=== PATIENT | male | born 1940 | race Caucasian/White ===

== ENCOUNTER 2023-11-20 10:47 | Outpatient (RCR) | payer MEDICARE, OTHER, SELFPAY | END 2023-11-20 23:59 | disposition home or self-care (01) | LOC: CRHB 10:47 | PROVIDERS: ATTENDING PHYSICIAN Internal Medicine Cardiovascular Disease | DX: I25.10 Atherosclerotic heart disease of native coronary artery without angina pectoris (principal); Z95.1 Presence of aortocoronary bypass graft | CPT/HCPCS: G0422; G0423 ==

== ENCOUNTER 2023-12-20 10:29 | Outpatient (RCR) | payer MEDICARE, OTHER, SELFPAY | END 2023-12-20 23:59 | disposition home or self-care (01) | LOC: CRHB 10:29 | PROVIDERS: ATTENDING PHYSICIAN Internal Medicine Cardiovascular Disease; FAMILY PHYSICIAN Nurse Practitioner Family | DX: I25.10 Atherosclerotic heart disease of native coronary artery without angina pectoris (principal); Z95.1 Presence of aortocoronary bypass graft | CPT/HCPCS: G0422; G0423 ==

== ENCOUNTER 2024-01-20 10:05 | Outpatient (RCR) | payer MEDICARE, OTHER, SELFPAY | END 2024-01-20 23:59 | disposition home or self-care (01) | LOC: CRHB 10:05 | PROVIDERS: ATTENDING PHYSICIAN Internal Medicine Cardiovascular Disease; FAMILY PHYSICIAN Nurse Practitioner Family | DX: I25.10 Atherosclerotic heart disease of native coronary artery without angina pectoris (principal); Z95.1 Presence of aortocoronary bypass graft | CPT/HCPCS: G0422; G0423 ==

== ENCOUNTER 2024-01-24 10:47 | Outpatient (RCR) | payer MEDICARE, OTHER, SELFPAY | END 2024-01-24 23:59 | disposition home or self-care (01) | LOC: CRHB 10:47 | PROVIDERS: ATTENDING PHYSICIAN Internal Medicine Cardiovascular Disease; FAMILY PHYSICIAN Nurse Practitioner Family | DX: I25.10 Atherosclerotic heart disease of native coronary artery without angina pectoris (principal); Z95.1 Presence of aortocoronary bypass graft | CPT/HCPCS: G0422; G0423 ==

== ENCOUNTER → 2025-03-15 13:53 | Outpatient (REF) | payer MEDICARE, OTHER, SELFPAY ==
[2025-03-15 15:18] LABS: Blood Urea Nitrogen 23 mg/dl (9-20); Calcium 9.5 mg/dl (8.4-10.2); Carbon Dioxide 27 mmol/L (22-30); Chloride 100 mmol/L (98-107); Glucose 116 mg/dl (70-99); Potassium 4.8 mmol/L (3.5-5.1); Sodium 133 mmol/L (135-145); eGFR 59.63
== END ==
LOC: REG 13:53
PROVIDERS: ATTENDING PHYSICIAN Physician Assistant
DX: C67.9 Malignant neoplasm of bladder, unspecified (principal)
CPT/HCPCS: 36415; 80048

== ENCOUNTER → 2025-03-16 08:24 | Outpatient (REF) | payer MEDICARE, OTHER, SELFPAY | LOC: RAD 08:24 | PROVIDERS: ATTENDING PHYSICIAN Physician Assistant; FAMILY PHYSICIAN Nurse Practitioner Family | DX: C67.9 Malignant neoplasm of bladder, unspecified (principal) | CPT/HCPCS: 74178; Q9967 ==

== ENCOUNTER 2025-03-30 23:02 | Observation (INO) | payer MEDICARE, OTHER, SELFPAY ==
[2025-03-30 19:14] VITALS: BP 151/80
[2025-03-30 19:18] LABS: Glucose - Point of Care 112 mg/dl (70-99)
--- NOTE | 2025-03-30 19:22 | ED.CVA ---
History of Present Illness
General
Chief Complaint: CVA/TIA Symptoms
Time Seen by Provider: 03/30/25 19:20
Onset of Stroke Symptoms
Onset of symptoms known: Yes
Date of onset of symptoms: 03/30/25
History of Present Illness
History of Present Illness:
See MDM
Past History
Past History
ED Past Medical History: CAD, HTN and Other (TIA)
ED Past Surgical History: Cardiac
Social History
Tobacco: Non-smoker
Alcohol: None
Phy Exam
Physical Exam
Physical Exam:
See MDM
NIH Stroke Score
Level of Consciousness: 0 - Alert
LOC questions: 0-Answers both correctly
LOC Commands: 0-Performs both correctly
Best Gaze: 0-Normal
Visual Campos: 0=Normal, no visual loss
Facial palsy: 0=Normal, symmetrical
Motor - Right Arm: 0=No drift 10 seconds
Motor - Left Arm: 0=No drift 10 seconds
Motor - Right Le-No drift 5 seconds
Motor - Left Le-No drift 5 seconds
Limb Ataxia: 0-Absent
Sensation: 0-Normal
Best Language: 0-No aphasia
Dysarthria: 0-Normal
Extinction and Inattention: 0-No abnormality
Total Score:: 0
Course
Orders/Labs/Results
Orders:
Orders
03/30/25 19:21
Electrocardiogram (*1) Stat
Reason for Study: Other
Other Reason for Exam: neuro symptoms
CT Head & Neck Angio W/wo IV Urgent
Comment:
Reason For Exam: expressive aphasia, resolving
Cardiac Monitoring- Treatment ONCE
EKG- Treatment ONCE
03/30/25 19:22
0.9% Sodium Chloride 1000 ml [Nss] 1,000 ml IV BOLUS
03/30/25 19:23
Complete Blood Count/With Diff Urgent
Comprehensive Metabolic Panel Urgent
PTT Urgent
Prothrombin Time Urgent
Troponin I Urgent
03/30/25 21:52
Aspirin Chewable [Low Strength Aspirin] 324 mg PO NOW STA
Clopidogrel Bisulfate [Plavix] 300 mg PO NOW STA
03/30/25 22:18
Admit/Transfer Patient As Directed
Co-Sign Provider:
Level of Care: Observation services
Assign to:: Telemetry
Physician / Group: tex
Diagnosis: cva
Reason for Telemetry: CVA/TIA
Date to Stop Telemetry: 04/02/25
Time to Stop Telemetry: 11:00
03/30/25 22:19
Code Status As Directed
Resuscitation Status: Full Code
PRN Pain Medication Management As Directed
May give lesser potent ordered pain med per pt: Yes
preference::
Protocol:: Medication orders for pain may be administered in a
manner that supports deferring to patient preference
when the pt is:
- Requesting an ordered lesser potent pain medication.
Least to most potent pain medications are defined
as: acetaminophen < NSAID < tramadol < opioids
(morphine, oxycodone, hydromorphone).
- Requesting a lesser dose of the same medication IF
ORDERED.
- Requesting a less intrusive route of administration
if both routes are prescribed by the provider (PO <
IV).
03/31/25 00:24
Acetaminophen [Tylenol/Feverall] 650 mg RECTAL Q4HPRN PRN
Acetaminophen [Tylenol] 650 mg PO Q4HPRN PRN
03/31/25 00:24
Echo 2D MMode Color/Doppler Routine
Reason for Study: stroke/TIA
Case Management Consult ONCE
Case Management Consult: Discharge Planning
Comment: stroke/tia
Consult Notification Routine
Specialty to Notify: Neurology
Date consulting provider notified: 03/31/25
Time consulting provider notified: 07:25
Notified:: Provider
Comment: MADELYN GORE
DIETARY IP CONSULT Routine
Reason for Consult: stroke/TIA
NEUROLOGY CONSULT Urgent
Consulting Provider: Madelyn Gore
Was physician already notified: No
Reason for consult: cva/tia
[employer] Urgent
MR Brain Without Contrast Routine
Comment:
Reason For Exam: stroke/TIA
Recent pill cam endoscopy?: No
Activity As Directed
Activity Level: As Tolerated
NIH Stroke Scale As Directed
Directions: Per protocol
Comment: every shift and with any change in condition or mental status
Neurological Checks As Directed
Frequency: q4h
Additional Instructions:: q4h x 24h upon admission to the floor, then qshift & with any change in condition
and mental status
Patient Education As Directed
Type: Stroke education packet
Comment: provide to patient and family
Pneumatic Compression Sleeves As Directed
Type: Thigh high
Swallow Screening CVA/TIA ONLY As Directed
Comment: NPO until swallowing screening completed
If patient FAILS swallow screening:: NPO, Speech Therapy consult, Aspiration Precautions
If patient PASSES swallow screening, diet:: Cholesterol Lowering
Above diet order entered?: Yes- passed screening
Vital Signs As Directed
Frequency: Per unit guidelines
Call for:: BP greater than 180/105 mmHg or less than 100/60 mmHg
Ot Eval And Treat Routine
Pt Eval And Treat Routine
Activity Level: As Tolerated
Speech Therapy Eval & Treat Routine
DX Deep Vein Thrombosis Video Routine
03/31/25 06:14
Cardiovascular Evaluation IN AM
Glycohemoglobin (HgbA1c) Routine
03/31/25 08:00
Aspirin Low Dose EC [Aspir Low (Enteric Coated)] 81 mg PO DAILY
Atorvastatin [Lipitor] 20 mg PO DAILY
Clopidogrel Bisulfate [Plavix] 75 mg PO DAILY
Midodrine [ProAmatine] 5 mg PO TID
Pantoprazole [Protonix] 20 mg PO DAILY
04/02/25 11:00
DC Protocol for Telemetry ONCE
Abnormal Lab Results
03/30/25 03/30/25
19:16 19:23
RBC 4.05 L 10^6/uL
(4.70-6.10)
Hct 38.2 L %
(39.0-52.0)
MCV 94.3 H fL
(80.0-94.0)
MCH 32.3 H pg
(27.0-31.0)
Absolute Monos (auto) 0.7 H 10^3/uL
(0.1-0.6)
PT 14.7 H Sec
(11.4-14.6)
BUN 22 H mg/dl
(9-20)
POC Glucose 112 H mg/dl
(70-99)
03/30/25 19:23
03/30/25 19:23
Vital Signs
Initial and Last Documented VS:
Initial Vital Signs
Temp Pulse Resp BP Pulse Ox
97.5 F 61 18 151/80 96
03/30/25 19:14 03/30/25 19:14 03/30/25 19:14 03/30/25 19:14 03/30/25 19:14
Last Documented Vital Signs
Temp Pulse Resp BP Pulse Ox
98.2 F 67 18 100/54 99
03/31/25 11:00 03/31/25 11:00 03/31/25 11:00 03/31/25 11:00 03/31/25 11:00
MDM/Problems Addressed
Differential Diagnosis Includes:
Note:
CHIEF COMPLAINT(S)
Speech difficulty.
HISTORY OF PRESENT ILLNESS
The patient is an 84-year-old male with a history of transient ischemic attacks (TIAs) presenting with difficulty speaking and slurred speech. This episode started approximately 20-40 minutes ago. Prior to the onset, the patient�s speech was normal
as verified by the family. The patient reported that he 'couldn't get the words out,' but his condition has since improved, allowing him to speak clearer, indicating partial resolution of symptoms. His speech initially improved after consuming some
fluids. The patient denies any current medications or allergies. He was taken off blood thinners a year and a half ago, which he was on previously until September. No other significant changes in medical history were mentioned. Patient was brought back
immediately. On my assessment, NIH stroke scale 0 and family confirms that all symptoms are resolved.
SOCIAL DETERMINANTS OF HEALTH
The patient�s recovery includes family support as the incident was promptly noted by family, aiding in timely medical attention.
PHYSICAL EXAM
General: Alert, no acute distress.
Skin: Warm, dry.
Head: Normocephalic, atraumatic
Neck: Appears supple, trachea midline.
Eyes, Ears, Nose, Mouth, and Throat: Moist mucous membranes
Cardiovascular: No signs of cyanosis. Regular rate and rhythm
Respiratory: Respirations are non-labored.
Abdomen: Non-distended
Musculoskeletal: No deformities
Neurological: No focal neurological deficit observed.
Psychiatric: Cooperative, appropriate mood and affect.
PLAN
- Perform studies to evaluate current condition and potential TIA-related effects.
- Observation for potential hospitalization to monitor overnight if necessary.
- Conduct non-emergency imaging (MRI) and angiography.
- Immediate administration of clot-busting medication not indicated due to improvement.
DIFFERENTIAL DIAGNOSIS
The Differential Diagnosis includes, in no particular order and is not limited to:
- Transient Ischemic Attack (TIA)
- Ischemic Stroke
- Hemorrhagic Stroke
- Dehydration-induced transient symptoms
- Transient Global Amnesia
- Aphasia due to other neurologic conditions
- Anxiety or stress-induced speech difficulties
- Adverse reaction to medication or substance
- Neurological disorders such as migraine with aura
SUMMARY OF ENCOUNTER
The patient presented with sudden onset of speech difficulties, which showed improvement upon initial examination. Given his history of TIAs, a transient reduction in cerebral blood flow could be considered as the underlying cause. Differential
diagnoses are being evaluated, but no immediate administration of thrombolytics is deemed necessary given the improvement in neurological function. The decision was made to monitor the patient, perform further imaging studies, and consider keeping
him under observation for potential overnight hospitalization and to ensure no further neurological deficits arise.
DISPOSITION
Pending observation and results from additional studies, consideration for overnight hospitalization for further evaluation.
ASSESSMENT
Possibility of TIA given the transient nature and rapid improvement of symptoms warranting further observation and diagnostic studies.
INDEPENDENT REVIEW OF LABS AND INTERPRETATION OF TESTS
My independent review of necessary imaging tests includes MRI scheduled but not urgent perfusion imaging.
MEDICATION RECONCILIATION
No current medications reported, and no new medications initiated during this visit.
MEDICAL DECISION MAKING
- Complexity of Data Reviewed: Chronic conditions affecting care, including past TIAs. Differential diagnosis includes TIA, ischemic stroke, dehydration, transient global amnesia, and others.
- Data:
Category 1: Non-emergency imaging studies (MRI, angiography) are planned.
Category 2: Input data from external and prior family reports on the patients TIA history.
-Risk: Consideration of Admission/Observation: Escalation of care including admission/observation was considered given the complexity and risk of the patients presenting complaint, ongoing neurological improvement, and underlying comorbidities.
DIAGNOSIS
- Transient Ischemic Attack (G45.9)
- Observation for potential ischemic stroke while ruling out other differential diagnoses.
EKG
My independent EKG interpretation is:
- Time of EKG: [not provided, specify if known]
- Rhythm: Sinus bradycardia
- Heart Rate: 53 beats per minute
- [place]: Normal axis
- ST Segment: No ST elevation
- Ectopic Activity: No ectopy
SUMMARY OF ENCOUNTER
The patient, an 80-year-old male, presented with expressive aphasia that occurred immediately prior to arrival but resolved spontaneously. Given his history of coronary artery disease and previous transient ischemic attacks (TIAs), a computed
tomography angiography (CTA) was performed and returned negative. No prior brain MRI is available for comparison. Considering the patients high-risk status, the decision for admission was made after discussing the risks versus benefits. The patient
was loaded with aspirin and clopidogrel.
DISPOSITION
Admit.
EMERGENCY TREATMENTS ADMINISTERED
Aspirin and clopidogrel.
PLAN
The patient was admitted for further evaluation and monitoring due to his high-risk status for further cerebrovascular events.
MEDICAL DECISION MAKING
-Complexity of Data Reviewed: Chronic conditions affecting care include coronary artery disease, prior TIAs. Differential diagnosis includes transient ischemic attack (TIA), ischemic stroke, and other causes of transient speech difficulty.
-Data:
Category 1
Tests and documents: CTA was reviewed and interpreted as negative.
Category 3
Discussion of management included the decision to admit for observation due to the high-risk nature of the patient�s condition.
DIAGNOSIS
- Possible Transient Ischemic Attack (TIA) (G45.9)
- High risk for cerebrovascular events due to prior coronary artery disease and TIA history.
*Pulse Oximetry
Patient hypoxic: no
*Critical Care Note
Total Time (30-74mins, 75-104mins- exclusive of procedures): Not Applicable
ED Attending Note
-
Portions of this chart may have been created with voice recognition software.� Occasional wrong word or��sound alike� substitutions may have occurred due to the inherent limitations of voice recognition software.
Discharge Plan
Departure
Patient Disposition: Admit
Date of Disposition: 03/30/25
Time of Disposition: 21:53
Admit to: Telemetry
Presentation/result/management discussed w/ accepting MD/DO: Hospitalist
Discharge Problem:
Brain TIA
Interventions
Interventions:
*Risk Screen - Suicide Last Done: 03/30/25 19:14
*General Assessment Last Done: 03/30/25 19:25
*Neglect/Abuse Screening Last Done: 03/30/25 19:14
*ED COVID-19 Vaccine History Last Done: 03/30/25 19:14
*ED Influenza Vaccine History Last Done: 03/30/25 19:14
[facility] Fall Risk Assessment Tool Last Done: 03/30/25 19:09
*Nursing Disposition Last Done: 03/31/25 00:10
ED- Pulmonary Assessment Last Done: 03/30/25 19:29
ED- Neurological Assessment Last Done: 03/30/25 19:29
ED- Cardiac Assessment Last Done: 03/30/25 19:29
ED Swallowing Screen Last Done: 03/30/25 21:34
Discharge Date and Time
Discharge Date/Time: 03/31/25 00:10
[2025-03-30] MEDS: NSS 1000 IV (19:32)
[2025-03-30 19:33] LABS: Hematocrit 38.2 % (39.0-52.0); Hemoglobin 13.1 g/dL (13.0-18.0); Mean Corp Hgb Conc. 34.3 g/dL (33.0-37.0); Mean Corpuscular Volume 94.3 fL (80.0-94.0); Nucleated Red Blood Cells % 0 % (-); Platelet Count 246 10^3/uL (130-400); Red Cell Dist. Width 12.1 % (11.5-14.5)
[2025-03-30 19:43] LABS: INR 1.14; PT 14.7 Sec (11.4-14.6)
[2025-03-30 19:44] LABS: APTT 31.8 Sec (23.4-35.0)
[2025-03-30 19:55] LABS: ALT (SGPT) 26 U/L (0-50); AST (SGOT) 29 U/L (17-59); Albumin 4.6 g/dl (3.5-5.0); Alkaline Phosphatase 63 U/L (38-126); Blood Urea Nitrogen 22 mg/dl (9-20); Calcium 9.3 mg/dl (8.4-10.2); Carbon Dioxide 26 mmol/L (22-30); Chloride 102 mmol/L (98-107); Glucose 99 mg/dl (70-99); Potassium 4.3 mmol/L (3.5-5.1); Sodium 135 mmol/L (135-145); Total Protein 7.8 g/dl (6.3-8.2); eGFR 54.17
[2025-03-30 20:00] VITALS: BP 150/73
[2025-03-30 20:06] LABS: Troponin I < 0.012 ng/ml
[2025-03-30 21:00] VITALS: BP 158/78
--- NOTE | 2025-03-30 21:56 | HPS.HSE ---
Addendum entered and electronically signed by Vince Denney MD 03/30/25 22:39:
84M hx of tia, mary, gerd, cad s/p cabg
Presented with slurred speech and word findings difficulties. Was given gatorade with improvement. Hx of tia multiple, one episode believed to be dehydration
NIH 0, low lying bladder, rrr, aox3, upper and lower extremity motor strength 5/5
TIA vs CVA
MRI Brain/Angio
Lipids
A1c
Statin
Dapt start [id number].
2d echo with bubble
Neuro consult
MARY
CPAP
CAD s/p CABG
Asa and statin
Hypotension
Midodrine
Gerd
PPI
Bladder Ca hx
Follows at [facility]
In remission
Original Note:
Family Physician
-
Family Physician: ROBERT Colmenares
Chief Complaint
-
slurred speech
History of Present Illness
84-year-old male with a history of transient ischemic attacks, bladder cancer, CAD, hypotension, GERD, HLD presented with slurred speech and was not able to get the words out, which lasted for 20-30minutes. presenting with difficulty speaking and
slurred speech. His speech initially improved after consuming Gatorade. he had an sip of alcohol prior to the symptoms. denied GREGG,dizzy or syncope. denied focal weakness. denied fever, chills, cough, congestion, chest pain, sob.denied abdominal
pain,n,v,d. denied dysuria or hematuria.
concern for TIA. recived asa and plavix in ER. admitting for further managment.
Medical History
Past Medical History
Past Medical History: Reports Other
Additional Past Medical History:
Bladder polyps, GERD, hyperlipidemia, kidney stones, TIA, ascending aorta dilation, DJD, CAD, renal insufficiency, bladder cancer, obstructive sleep apnea
Past Surgical History: Reports Other
Additional Past Surgical History:
Coronary artery bypass graft x 3 vessels
Social History
Tobacco: Former Smoker
Alcohol: Occasional
Drug: None
Personal:
Living: With Family
Family History
Family History: Not pertinent
Allergies / Home Medications
Allergies reflects when Allergies were last updated in [employer].
Home Medications with original date entered in [employer]
Allergy/Medication List:
Allergies
Allergy/AdvReac Type Severity Reaction Status Date / Time
No Known Allergies Allergy Unverified 03/30/25 19:14
Home Medications
aspirin 81 mg tablet 81 mg PO DAILY 03/30/25
midodrine 5 mg tablet 5 mg PO TID 03/30/25
pantoprazole 20 mg tablet,delayed release 20 mg PO DAILY 03/30/25
simvastatin 40 mg tablet 40 mg PO DAILY 03/30/25
Review of Systems
-
Constitutional: Reports No Symptoms
EENT: Reports No Symptoms
Respiratory: Reports No Symptoms
Cardiac: Reports No Symptoms
Abdomen/GI: Reports No Symptoms
: Reports No Symptoms
Musculoskeletal: Reports No Symptoms
Skin: Reports No Symptoms
Neurological: Reports Other (slurred speech)
Endocrine: Reports No Symptoms
Hematologic/Lymphatic: Reports No Symptoms
Psych: Reports No Symptoms
Physical Exam
Vital Signs
Vital Signs
Temp Pulse Resp BP Pulse Ox
97.5 F 57 18 158/78 98
03/30/25 19:14 03/30/25 21:45 03/30/25 21:45 03/30/25 21:00 03/30/25 21:45
Physical Exam
General: Well Developed, Well Nourished and No Apparent Distress
HEENT: NormoCephalic, Moist mucous membranes and Atraumatic
Respiratory: Clear
Cardiac: S1/S2 and Regular Rhythm; No Murmur or Rub
GI: Soft, Non Tender, Non Distended and Normal Bowel Sounds; No Organomegaly
Rectal: Deferred by Provider
Musculoskeletal: No Clubbing, No Cyanosis and No Edema
Skin: No Rash
Neuro: AO x 3 and Nonfocal/grossly intact
Psych: Calm
Laboratory Results
-
03/30/25 19:23
03/30/25 19:
Laboratory Results
PT 14.7 Sec (11.4-14.6) H 03/30/25:
INR 1.14 03/30/25:
APTT 31.8 Sec (23.4-35.0) 03/30/25:
Total Bilirubin 1.1 mg/dl (0.2-1.3) 03/30/25:
AST 29 U/L (17-59) 03/30/25:
ALT 26 U/L (0-50) 03/30/25:
Alkaline Phosphatase 63 U/L (38-126) 03/30/25:
Troponin I < 0.012 ng/ml 03/30/25:23
Data Reviewed
-
CT Scan: Report Reviewed by me
Lab Data: Labs Reviewed by me
Impression/Plan
-
#expressive aphasia concern for CVA/TIA
-asa and Plavix
-MRI of brain
-obtain ECHO
-obtain a1c, lipid profile
-statin
-pt/ot
-neuro consult
-head neck CTA with no acute findings
#hypotension
-midodrine continued
#GERD
-PPI
#HLD
-statin
#hxt of CABG
#hxt of bladder ca
-follows [facility] as outpatient.
#DVT Prophylaxis
-scd
#CODE status
-full code
[2025-03-30] MEDS: LOW STRENGTH ASPIRIN 324 MG PO (21:57)
[2025-03-30] MEDS: PLAVIX 300 MG PO (21:57)
[2025-03-31] VITALS (12 sets, daily range): BP systolic 82–148; BP diastolic 44–74; PULSE 65–76; O2SAT 95; BMI 26.7
--- NOTE | 2025-03-31 03:16 | PTCARENOTE ---
03/31 at 0025: Pt received from ED via stretcher with belongings. Telemetry order> NSR on monitor, afebrile, HR 77, RR 16,
BP 132/74, pox 97% room air. No c/o pain. AAOx4, cochlear implant device noted. steady on feet. NIH 0. stroke packet provided.
PMH/medications reviewed by this RN and patient. Plan of care discussed. Call jean within reach.
[2025-03-31 07:12] LABS: HDL Cholesterol 41 mg/dl; LDL Cholesterol, Calculated 70 mg/dl; Very Low Density Lipoprotein 16 mg/dl (0-30)
[2025-03-31 07:19] LABS: Glycohemoglobin (HgbA1c) 5.4 % (4.0-5.9)
[2025-03-31] MEDS: ASPIR LOW (ENTERIC COATED) 81 MG PO (08:56)
[2025-03-31] MEDS: LIPITOR 20 MG PO (08:56)
[2025-03-31] MEDS: PLAVIX 75 MG PO (08:56)
[2025-03-31] MEDS: PROTONIX 20 MG PO (08:56)
--- NOTE | 2025-03-31 09:15 | CON.NEURO4 ---
Addendum entered and electronically signed by Erick Gore MD 03/31/25 19:42:
The patient was seen and examined today along with the nurse practitioner Geena Penn. I agree with the nurse practitioner Geena Penn's assessment and management plan. I personally performed the medical decision making of this encounter
and my assessment and management plan is as given below.
The patient is an 84 years old male, who has presented to the hospital on 03/30/25 with report of speech difficulty and dysarthria. Patient reports that last evening (03/30/25) at 1900 he was at his baseline when suddenly he had difficulty getting his
words out, and what came out sounded slurred. His family gave him some Gatorade and his symptoms began to improve. Her reports that after about 20-30 minutes his speech was back to baseline. NIHSS was 0 on arrival. CTA head/neck was obtained and is
negative for any acute abnormalities.
Neurologic examination
Alert oriented x 3,
Speech is clear,
The cranial nerves II to XII grossly intact,
The motor strength is grossly 5/5 bilaterally in upper and lower extremities,
Sensation grossly normal bilaterally,
The cerebellar examination does not show any limb ataxia.
. The patient likely had a transient ischemic attack and he has returned to his baseline. He was not a candidate for thrombolytic therapy as he returned to his baseline when he presented to the ER. The risk factors for stroke include hypertension
hyperlipidemia and coronary artery disease.
. MRI of the brain does not show an acute intracranial abnormality.
. Echocardiogram showed an ejection fraction of 60% and the left atrial volume is moderately abnormal.
. Recommend a 30-day Holter monitor at the time of discharge.
. The patient will continue take aspirin 81 mg daily, Plavix 75 mg daily and atorvastatin 20 mg daily.
. The LDL goal is less than 70.
. Check orthostatic vital signs.
Original Note:
Consultation - Neurology 4
-
CONSULTING PHYSICIAN: Erick Gore MD
REFERRING PHYSICIAN: Hospitalists/ROBERT Messina
DICTATED BY: ROBERT Courtney
DATE/TIME OF REQUEST: 03/31/25
DATE/TIME OF CONSULTATION: 03/31/25
Reason for Consultation: Transient Speech Difficulty
History of Present Illness:
This is an 84-year-old right-handed male who has presented to the hospital on 03/30/25 with report of speech difficulty and dysarthria. Patient reports that last evening (03/30/25) at 1900 he was at his baseline when suddenly he had difficulty
getting his words out, and what came out sounded slurred. His family gave him some Gatorade and his symptoms began to improve. Her reports that after about 20-30 minutes his speech was back to baseline. NIHSS was 0 on arrival. CTA head/neck was
obtained and is negative for any acute abnormalities. He is taking aspirin 81mg daily and was loaded with DAPT in the ER. Today (03/31/25), patient reports feeling at his baseline. He denies any headache, dizziness, vision changes, speech/swallow
difficulty, numbness, and weakness. He reports having a 'TIA' about three years ago that was somewhat similar. He suddenly couldn't remember the names of his grandchildren. He was evaluated at [facility] at that time and reports undergoing a stroke workup
including MRI brain imaging, and he notes it was all unremarkable.
Past Medical History: 'TIA' in 2021, HTN, orthostatic hypotension, HLD, CAD, JOANA (cpap), bladder cancer, CKD, hearing loss, GERD, renal calculi.
Surgical History: CABG x3.
Family History: Father- stroke age 89.
Social History: Former smoker. Occasional alcohol. Denies illicit drug use.
Allergies: No known allergies.
Home Medications: See below.
Review of Symptoms:
Patient denies any fever, headache, chest pain, shortness of breath, GI or symptoms.
�Per the HPI.�All systems are reviewed negative except above.
Physical Exam:
The patient is afebrile, abdomen is nondistended, breathing is unlabored, skin is warm and dry, no edema.
NIH Stroke Scale :
I performed the NIH stroke scale on the patient on 03/31/25 at 0845. The patient scored 0 points on the NIH stroke scale assessment, which were assigned as follows: See below.
Neurologic Examination:
The patient is awake, alert and oriented x 3. He is able to follow commands and answer questions appropriately. There is no aphasia or dysarthria. On cranial nerve assessment, pupils are 3 mm bilateral, round and reactive to light and
accommodation. Visual campos are full. Extraocular movements are intact. Facial sensations are intact and bilaterally symmetrical, there is no facial asymmetry. Hearing diminished bilaterally to normal conversation volume. Tongue palate and uvula
are midline. Sternocleidomastoid strengths are full bilaterally. Motor strengths are 5/5 bilateral upper and lower extremities on medical research Vanduser scale. There is no drift or involuntary movement noted. There was no extinction noted on
double simultaneous stimulation. Coordination is intact by finger to nose bilaterally.
Lab Results: See below.
Neuro Imaging:
1. CTA head/neck 03/30/25: No evidence of acute intracranial abnormality. There is paranasal sinus disease including small air-fluid levels within the left sphenoid sinus and the maxillary sinuses bilaterally. Please correlate with any symptoms that
would suggest acute sinusitis. No evidence for hemodynamically significant stenosis of either carotid bulb or proximal internal carotid artery. There is no evidence for significant narrowing of vertebral arteries. Basilar artery is slightly
hypoplastic. Both posterior cerebral arteries are supplied mainly from the posterior communicating arteries. No significant narrowing of the intracranial circulation. There is no CT angiographic evidence for intracranial aneurysm.
2. TTE 03/31/25: EF 60%, left atrial volume is moderately abnormal.
Differentials for the patient's presentation include:
1. Transient aphasia and dysarthria; differential diagnosis includes transient ischemic attack, a small ischemic stroke, metabolic disturbance, orthostasis, or less likely partial seizure.
2. Left atrial volume is moderately abnormal on TTE imaging.
Patient has the following risk factors for their symptoms: Hx similar event, orthostasis, age, HLD
IV Tenecteplase/IAT candidacy: He was not a candidate due to NIHSS 0, no LVO.
Recommendations:
-Continue DAPT with aspirin 81mg and clopidogrel 75mg daily for 21 days. After 21 days, stop clopidogrel and continue aspirin 81mg daily.
-Aspirin efficacy testing pending.
-MRI brain noncontrast pending.
-Check orthostatic vital signs.
-Given left atrial volume enlargement, would consider extended cardiac monitoring as an outpatient.
-NIHSS and neurological checks per unit guidelines.
-Provide patient with a stroke education packet.
-LDL goal <70. LDL is 70. Okay to continue home simvastatin 40mg daily as LDL is at goal.
-Goal normoglycemia, hbA1c is 5.4.
-Checking blood work for metabolic abnormalities.
-ST evaluation.
-DVT prophylaxis.
Discussed patient care with: Dr. Gore, the patient
Vital Signs and Labs
-
Vital Signs and Labs:
Vital Signs
Temp Pulse Resp BP Pulse Ox
98.2 F 67 18 100/54 99
03/31/25 11:00 03/31/25 11:00 03/31/25 11:00 03/31/25 11:00 03/31/25 11:00
Lab Results
03/30/25 19:23
03/30/25 19:23
PT 14.7 Sec (11.4-14.6) H 03/30/25 19:23
INR 1.14 03/30/25 19:23
APTT 31.8 Sec (23.4-35.0) 03/30/25 19:23
Sodium 135 mmol/L (135-145) 03/30/25 19:23
Potassium 4.3 mmol/L (3.5-5.1) 03/30/25 19:23
BUN 22 mg/dl (9-20) H 03/30/25 19:23
Glucose 99 mg/dl (70-99) 03/30/25 19:23
Calcium 9.3 mg/dl (8.4-10.2) 03/30/25 19:23
LDL Cholesterol, Calc 70 mg/dl 03/31/25 06:14
Medications
-
Active Medications
Generic Name Dose Route Start Last Admin
Trade Name Freq PRN Reason Stop Dose Admin
Acetaminophen 650 mg 03/31/25 00:24
Acetaminophen 650 Mg Rectal Suppository RECTAL 04/28/25 00:23
Q4HPRN PRN
GREGG, mild pain, or temp >100.4F
Acetaminophen 650 mg 03/31/25 00:24
Acetaminophen 325 Mg Tablet PO 04/28/25 00:23
Q4HPRN PRN
GREGG, mild pain, or temp >100.4F
Aspirin 81 mg 03/31/25 08:00 03/31/25 08:56
Aspirin 81 Mg (Enteric Coated) Tablet PO 04/28/25 07:59 81 mg
DAILY BLANCA Administration
Atorvastatin Calcium 20 mg 03/31/25 08:00 03/31/25 08:56
Atorvastatin (Lipitor) 20 Mg Tablet PO 04/28/25 07:59 20 mg
DAILY BLANCA Administration
Clopidogrel Bisulfate 75 mg 03/31/25 08:00 03/31/25 08:56
Clopidogrel 75 Mg Tablet PO 04/28/25 07:59 75 mg
DAILY BLANCA Administration
Midodrine 5 mg 03/31/25 08:00 03/31/25 08:55
Midodrine 5 Mg Tablet PO 04/28/25 07:59 5 mg
TID BLANCA Administration
Pantoprazole Sodium 20 mg 03/31/25 08:00 03/31/25 08:56
Pantoprazole 20 Mg Delayed Release Tablet PO 04/28/25 07:59 20 mg
DAILY BLANCA Administration
Home Medications
�Medication �Instructions �Recorded
aspirin 81 mg tablet 81 mg PO DAILY Blood Clot 03/30/25
Prevention/Tx
midodrine 5 mg tablet 5 mg PO TID Blood Pressure 03/30/25
pantoprazole 20 mg tablet,delayed 20 mg PO DAILY Gastrointestinal 03/30/25
release Issue
simvastatin 40 mg tablet 40 mg PO DAILY High Cholesterol 03/30/25
NIH Stroke Score
Subsequent NIH Scale
Date of Subsequent NIH Scale: 03/31/25
Time of Subsequent NIH Scale: 08:45
NIH Stroke Score
Level of Consciousness: 0 - Alert
LOC Questions: 0-Answers both correctly
LOC Commands: 0-Performs both correctly
Best Horizontal Gaze: 0-Normal
Visual Campos: 0=Normal, no visual loss
Facial Palsy: 0=Normal, symmetrical
Motor - Right Arm: 0=No drift 10 seconds
Motor - Left Arm: 0=No drift 10 seconds
Motor - Right Le-No drift 5 seconds
Motor - Left Le-No drift 5 seconds
Limb Ataxia: 0-Absent
Sensation: 0-Normal
Best Language: 0-No aphasia
Dysarthria: 0-Normal
Extinction and Inattention: 0-No abnormality
NIH Total Score:: 0
Modified [place] (mRS) Score
Modified [place] Scale (mRS): No symptoms
Score: 0
Alteplase Contraindication
Inclusion and Exclusion criteria reviewed: Yes
IAT Contraindications: Imaging doesn't show large vessel occlusion as cause of stroke
--- NOTE | 2025-03-31 10:56 | PTOTSP ---
Speech Therapy Evaluation:
Pt with predisposing risk factors of dysphagia (hx TIAs, GERD) and precipitating risk factors of dysphagia (concern for acute CVA). At bedside, swallow appeared WFL. No overt s/sx of aspiration. Pt without dysphagia hx, WBC WNL, on room air, and
passed 3oz swallow screen.
Recommend:
1. Cont. regular solids and thin liquids
2. Meds as tolerated
3. General aspiration and reflux precautions
4. ENTRY OPERATOR to follow, pending results of MRI to determine if further dysphagia tx or cognitive/language assessment warranted
--- NOTE | 2025-03-31 12:01 | W.PN.HOSP.TC ---
Today's Communication/Plan
-
Monitor vitals
See plan
Neurology to see
MRI pending
PT
Assessment / Plan
Assessment / Plan
General: Well Developed, Well Nourished and No Apparent Distress
HEENT: NormoCephalic, Moist mucous membranes and Atraumatic
Respiratory: Clear
Cardiac: S1/S2 and Regular Rhythm; No Murmur or Rub
GI: Soft, Non Tender, Non Distended and Normal Bowel Sounds
Musculoskeletal: No Edema
Neuro: AO x 3 and Nonfocal/grossly intact
Psych: Calm
expressive aphasia And slurred speech concern for CVA/TIA
hx of TIA
-cw asa and Plavix
-MRI of brain pending
Echo with EF 60%, mild concentric LVH
-obtain a1c 5.4, LDL 70
-statin
-pt
Neurology evaluation
-head neck CTA with no acute findings
#hypotension
-midodrine continued
#GERD
-PPI
#HLD
-statin
#hxt of CABG
#hxt of bladder ca
-follows [facility] as outpatient.
#DVT Prophylaxis
-scd
#CODE status
-full code
Anticipated Discharge: Within 24 hours
Subjective/Interval History
-
Date of Service: March 31, 2025
Denies pain
Objective Data
-
Vital Signs:
Vital Signs
Temp Pulse Resp BP Pulse Ox
98.2 F 67 18 100/54 99
03/31/25 11:00 03/31/25 11:00 03/31/25 11:00 03/31/25 11:00 03/31/25 11:00
[2025-03-31 14:07] LABS: VerifyNow Aspirin 398 ARU
[2025-03-31 16:54] LABS: Ferritin 68.1 ng/ml (17.9-464.0)
[2025-03-31 17:26] LABS: Folate 11.7 ng/ml (2.76-20); Vitamin B12 761 pg/ml (239-931)
--- NOTE | 2025-03-31 18:03 | CM ---
Alert awake oriented patient who lives with his Margaret who lives in a 1 story home with 0 step to enter . He is independent in driving and in all activities of daily living.He was offered VN he declined need.Lise explained [place] [facility].
[facility] VN hx / No SNF history
Pharmacy [facility] [address]
PCP DR Randolph
PLAN Home Declined VN
[2025-04-01 03:00] VITALS: BP 123/63
[2025-04-01 07:00] VITALS: BP 125/68
[2025-04-01] MEDS: ASPIR LOW (ENTERIC COATED) 81 MG PO (07:46)
[2025-04-01] MEDS: LIPITOR 20 MG PO (07:46)
[2025-04-01] MEDS: PLAVIX 75 MG PO (07:46)
[2025-04-01] MEDS: PROTONIX 20 MG PO (07:49)
--- NOTE | 2025-04-01 09:58 | W.PN.HOSP.TC ---
Today's Communication/Plan
-
dc home with OP neuro f/u and also 30 day Holter monitor to be setup by Cards
Assessment / Plan
Assessment / Plan
General: Well Developed, Well Nourished and No Apparent Distress
HEENT: NormoCephalic, Moist mucous membranes and Atraumatic
Respiratory: Clear
Cardiac: S1/S2 and Regular Rhythm; No Murmur or Rub
GI: Soft, Non Tender, Non Distended and Normal Bowel Sounds
Musculoskeletal: No Edema
Neuro: AO x 3 and Nonfocal/grossly intact
Psych: Calm
TIA
- symptoms of expressive aphasia And slurred speech - now resolved
- CTA negative
- MRI negative
- Echo: EF 60%, mild concentric LVH
- Tele: no arrhythmia; neuro recommends 30 day Holter; TT'd [facility] cardiology group
- continue ASA + Plavix x 3 weeks, then ASA alone
- continue Statin
history of orthostasis
- on Midodrine TID
- OP Neuro evaluation for PD
GERD - PPI
HLD - statin
Hx of CAD s/p CABG
Hx of Bladder ca
- follow with [facility] outpatient
DVT ppx: SCDs
Code: Full
More than 30 minutes spent in discharge including
Final examination of the patient
Summarizing hospital stay
Instructions for continuing care to all relevant caregivers
Preparation of discharge records, prescriptions, and referral forms
Total time spent (in minutes): 41
Anticipated Discharge: Today
Subjective/Interval History
-
Date of Service: April 01, 2025
speech difficulties have resolved
MRI negative and diagnosed with TIA per Neurology
Objective Data
-
Vital Signs:
Vital Signs
Temp Pulse Resp BP Pulse Ox
98.4 F 57 16 125/68 95
04/01/25 07:00 04/01/25 07:46 04/01/25 07:00 04/01/25 07:46 04/01/25 07:00
I&O
03/31/25 04/01/25 04/02/25
06:59 06:59 06:59
Intake Total 1250 / 1250
Balance 1250 / 1250
Data Reviewed
-
Total Time Spent with Patient (in minutes): 41
Labs: Labs Reviewed by me
--- NOTE | 2025-04-01 10:04 | W.DCSUMMARY ---
Discharge Summary
Discharge Data
Date of Admission: 03/30/25
Date of Discharge: 04/01/25
-
Pending Results: No
Hospital Course
84 y/o M, hx of CAD s/p CABG, Bladder cancer, HLD, GERD, orthostasis on Midodrine presented to ER on 03/30 with slurred speech and word findings difficulties. Symptoms resolved in ER and patients NIH was 0 at the time of presentation. CTA study was
negative. Echo did not show abnormalities or clots. Tele did not reveal arrhythmias. MRI was negative. Neurology evaluated and diagnosed patient with TIA and prescribed statin + 3 weeks of ASA + Plavix followed by Aspirin alone. Patient also
recommended 30 day Holter monitor which Cardiology will arrange.
Patient will see Neurology OP in 4-6 weeks.
Patient was discharged home 04/01/25.
Discharge Plan
-
Patient Disposition: Home (Routine Discharge)
Discharge Diagnosis/Procedures: TIA
Condition: Fair
Diet: Low Cholesterol
Activity: As tolerated
Bathing Restrictions: None
Referrals:
Candace Caballero CRNP [Specified Professional Personl, Neurology]
Referral Note: call this office and mention hospitalization for TIA and need for early follow up
Usama Garcia MD [Active, Cardiology]
Referral Note: call this office Oswald morning to follow up on plans for setting up Holter Monitor
Rosalinda Patel CRNP [Family Provider]
Prescriptions:
New
clopidogrel 75 mg Tablet
75 mg PO DAILY Qty: 21 0RF
Continued
midodrine 5 mg Tablet
5 mg PO TID
simvastatin 40 mg Tablet
40 mg PO DAILY
pantoprazole 20 mg Tablet,Delayed Release (Dr/Ec)
20 mg PO DAILY
aspirin 81 mg Tablet
81 mg PO DAILY
Discharge Orders:
Discharge Patient (As Directed); Ordered 04/01/25
Ordered By: Denise Arrieta
Discharge Date and Time
Print Language: ITALIAN
--- NOTE | 2025-04-01 10:34 | CM ---
patient seen at bedside with
Discharge today - OBS status form in chart
PT eval no needs
PLAN: Home, no needs
to transport
[2025-04-01 10:45] VITALS: BP 99/61
== END 2025-04-01 11:05 | disposition home or self-care (01) ==
LOC: 3 WEST ACU 23:02
PROVIDERS: Registered Nurse; Registered Nurse Critical Care Medicine; ADMITTING PHYSICIAN Hospitalist; ATTENDING PHYSICIAN Internal Medicine; CONSULT PHYSICIAN Psychiatry & Neurology Neurology; EMERGENCY PHYSICIAN Student in an Organized Health Care Education/Training Program; FAMILY PHYSICIAN Nurse Practitioner Family
DX: G45.9 Transient cerebral ischemic attack, unspecified (principal); R47.01 Aphasia; G47.33 Obstructive sleep apnea (adult) (pediatric); I95.9 Hypotension, unspecified; K21.9 Gastro-esophageal reflux disease without esophagitis; Z87.891 Personal history of nicotine dependence; Z79.82 Long term (current) use of aspirin; E78.5 Hyperlipidemia, unspecified; Z79.02 Long term (current) use of antithrombotics/antiplatelets; Z79.899 Other long term (current) drug therapy; Z86.73 Personal history of transient ischemic attack (TIA), and cerebral infarction without residual deficits
CPT/HCPCS: 70496; 70498; 70551; 80053; 80061; 82607; 82728; 82746; 82962; 83036; 84443; 84484; 85025; 85576; 85610; 85730; 92610; 93005; 93306; 94660; 96360; 97162; 97165; 99285; G0378; Q9967